=== PATIENT | female | born 1940 | race Two or more races ===

== ENCOUNTER → 2020-05-19 | Emergency (ER) | payer SELFPAY ==
[~2020-05-19] MED LIST: Ketorolac 30mg Inj ONE; Morphine Sulfate 2mg/ml Inj(IV/IM USE ONLY) ONE
--- NOTE | 2020-05-20 16:45 | Diagnostic Imaging Report ---
Indication: Pain, status post fall Technique: 2 views of the left elbow Comparison: none Findings: There is a fracture deformity of the midshaft humerus. This demonstrates some irregularity of the edges but the medullary portion and most the cortex appears to be healed and united. Exam is limited due to the availability of only 2 views. No definite joint effusion. No acute fractures. No dislocations. Impression: No acute bony trauma Old humeral fracture
--- NOTE | 2020-05-27 08:55 | Emergency Room Report ---
History of Present Illness Present Illness HPI Patient is an 79-year-old female who presents after increased left upper extremity pain. Patient was brought in by EMS. Had previous history of fracture to the left upper extremity. Reported having increased pain with movements. Had recent injury. Patient was reporting having increased pain to the upper arm but denies any pain to the forearm or hand. Patient History Past Medical History: see triage record Reviewed Nursing Documentation: PMH: Agreed; PSxH: Agreed Review of Systems All Other Systems: negative except mentioned in HPI Physical Exam General Appearance: well appearing, no apparent distress, alert, GCS 15 Head: normocephalic, atraumatic ENT: hearing grossly normal, normal voice Neck: full range of motion, supple Respiratory: lungs clear, no respiratory distress, speaking full sentences Gastrointestinal: normal inspection, soft Musculoskeletal: decreased range of mation - Soft tissue swelling to the left humerus. Neurologic: alert, motor strength/tone normal, [employer] III-XII nml as tested, oriented x3, normal gait Psychiatric: normal inspection, mood/affect normal Skin: no rash Medical Decision Making Diagnostic Impression: Primary Impression: Fracture, humerus closed, shaft ER Course Patient presented for left upper extremity pain. Differential diagnosis include was not limited to fracture, contusion, foreign body among others. X- ray imaging was ordered x-ray imaging 2 views showed a midshaft deformity of the humerus.No acute fracture was seen and no dislocations. Patient was placed in a splint. Patient was placed in a sling. She is given pain medications. Patient was advised to follow-up with orthopedics for reevaluation and treatment. The patient is advised to follow up with primary care doctor in 1- 2 days. Patient is advised to return if any worsening condition or if any changes in status that are concerning. This report is dictated with [employer] manager area software which may occasionally lead to discrepancies related to use of this software. Status: improved Disposition: HOME, SELF-CARE Condition: Stable Referrals: NOT CHOSEN IPA/,REFERRING (PCP) Suman Levy MD May 27, 2020 08:55
== END | disposition home or self-care (01) ==
LOC: EMR 22:42
DX: S42.302A Unspecified fracture of shaft of humerus, left arm, initial encounter for closed fracture (principal); X58.XXXA Exposure to other specified factors, initial encounter; Y92.9 Unspecified place or not applicable
CPT/HCPCS: 29105; 73070; 96374; 96375; 99283; J1885; J2270